=== PATIENT | female | born 2000 | race Caucasian/White ===

== ENCOUNTER 2023-03-17 19:05 | Emergency (ER) | payer MEDICAID ==
[~2023-03-17] VITALS: Ht 162.6 cm; Wt 90.9 kg
[2023-03-17 19:28] VITALS: BP 126/89
[2023-03-18] MEDS ORDERED: acetaminophen 325mg tablet PO ONE (00:35)
[2023-03-18] MEDS ORDERED: mag hydrox/Alum hydrox/simeth 30ml oral suspension PO ONE (00:35)
[2023-03-18] MEDS ORDERED: LIDOcaine Viscous 15ml cup MM ONE (00:35)
[2023-03-18] MEDS ORDERED: ibuprofen tablet 400 MG TABLET PO ONE (00:35)
[2023-03-18] MEDS ORDERED: ondansetron 4mg rapidly disintigrating tab PO ONE (00:35)
[2023-03-18] MEDS ORDERED: famotidine 20mg tablet PO ONE (00:35)
[2023-03-18] MEDS ORDERED: FAMO-128 PO (01:26)
[2023-03-18] MEDS ORDERED: ACET-1025 PO (01:26)
== END 2023-03-18 01:41 | disposition home or self-care (01) ==
LOC: ER 19:06
DX: J02.9 Acute pharyngitis, unspecified (principal)
CPT/HCPCS: 87081; 87880; 99284